=== PATIENT | female | born 1975 ===

== ENCOUNTER 2018-05-17 09:12 | Emergency (ER) | payer OTHER ==
[2018-05-17 09:18] VITALS: BMI 35.1
[2018-05-17 09:20] VITALS: O2SAT 98
--- NOTE | 2018-05-17 10:15 | ED PDOC ---
HPI: Female Pain Time Seen by Provider: 05/17/18 09:20 Chief Complaint (Nursing): Female Genitourinary Chief Complaint (Provider): Female Genitourinary History Per: Patient, Booking Agent ([id number]) History/Exam Limitations: no limitations Onset/Duration Of Symptoms: Days Associated Symptoms: denies: Fever, Vomiting, Diarrhea Additional Complaint(s): 42 y/o female presents to ER with for evaluation of right sided abdominal discomfort for several days. Patient reports feeling as a baby moving inside her. She states she had blood work done last month at [facility] that showed she was not . Patient still thinks she may be and reports not getting her period this month. She reports one isolated vaginal bleeding episode on May 09. Patient denies any vomiting, fever or diarrhea. She is requesting US since blood work showed before that there is no . PMD: [facility] Past Medical History Reviewed: Historical Data, Nursing Documentation, Vital Signs Vital Signs: Last Vital Signs Temp 98.3 F 05/17/18 09:18 Pulse 90 05/17/18 09:18 Resp 20 05/17/18 09:18 BP 145/99 H 05/17/18 09:18 Pulse Ox 98 05/17/18 09:18 - Medical History PMH: HTN, Hyperlipidemia, Kidney Stones, Chronic Kidney Disease - Surgical History Surgical History: Cholecystectomy Other surgeries: 3 Kidney stones removal surgeries - Family History Family History: States: Unknown Family Hx - Social History Current smoker - smoking cessation education provided: No Alcohol: None Drugs: Denies - Immunization History Hx Tetanus Toxoid Vaccination: No Hx Influenza Vaccination: No Hx Pneumococcal Vaccination: No - Home Medications Home Medications: Ambulatory Orders Medication Instructions Recorded DiphenhydrAMINE [Benadryl] 25 mg PO Q4 PRN 04/13/18 Ondansetron ODT [Zofran ODT] 4 mg PO Q8 #12 odt 04/13/18 - Allergies Allergies/Adverse Reactions: Allergies Allergy/AdvReac Type Severity Reaction Status Date / Time No Known Allergies Allergy Unverified 03/29/13 14:25 Review of Systems ROS Statement: Except As Marked, All Systems Reviewed And Found Negative Constitutional: Negative for: Fever Gastrointestinal: Positive for: Abdominal Pain (Right sided). Negative for: Vomiting, Diarrhea Physical Exam - Reviewed Nursing Documentation Reviewed: Yes Vital Signs Reviewed: Yes - Physical Exam Appears: Positive for: Non-toxic, No Acute Distress Head Exam: Positive for: ATRAUMATIC, NORMOCEPHALIC Skin: Positive for: Normal Color, Warm, Dry Eye Exam: Positive for: Normal appearance ENT: Positive for: Normal ENT Inspection Neck: Positive for: Normal, Painless ROM, Supple Cardiovascular/Chest: Positive for: Regular Rate, Rhythm. Negative for: Murmur Respiratory: Positive for: Normal Breath Sounds. Negative for: Wheezing Gastrointestinal/Abdominal: Positive for: Soft, Tenderness (Slight right sided) Extremity: Positive for: Normal ROM. Negative for: Pedal Edema, Swelling Neurologic/Psych: Positive for: Alert, Oriented (x3) - Laboratory Results Result Diagrams: 05/17/18 12:40 05/17/18 12:40 - ECG O2 Sat by Pulse Oximetry: 98 (RA) Pulse Ox Interpretation: Normal Medical Decision Making Medical Decision Making: Time: 951 Initial Impression: abdominal discomfort rule out pelvic abnormality. if US is negative, rule out kidney stones Initial Plan: --Beta- HCG --CMP --Lipase --CBC --Urine --Urinalysis --Transvaginal US 141 Transvaginal US FINDINGS: UTERUS: Measures 10.0 x 7.7 x 3.4 cm. Normal in size and anteverted appearance. No fibroid or other mass lesion seen. ENDOMETRIUM: Measures 3 mm in diameter. Unremarkable. CERVIX: Incidental nabothian cysts measuring 8 mm in size is noted. RIGHT OVARY: Measures 3.9 x 4.7 x 2.1 cm. No solid mass. Normal flow. Benign physiologic follicular cysts are noted. LEFT OVARY: Measures 4.9 x 4.4 x 3.4 cm. No solid mass. Normal flow. A dominant left ovarian cyst measuring 4.8 x 3.6 x 2.1 cm in size. This cyst appears benign simple in type. There are small smaller sub cm peripheral follicle cysts also incidentally noted. FREE FLUID: No significant free fluid noted. OTHER FINDINGS: None. IMPRESSION: Simple benign-appearing left ovarian cyst measuring 4.8 x 3.6 x 2.1 cm. Consider follow-up pelvic/transvaginal ultrasound imaging in 6 to 8 weeks to reassess. 1452 Patient is aware of US results. Will obtain CT of abdomen for patient has history of kidney stones. 1640 CT abd/pelvis FINDINGS: LOWER THORAX: The visualized lungs are clear. LIVER: Enlarged and measures 21 cm in craniocaudad dimension. No intrahepatic ductal dilatation. GALLBLADDER AND BILE DUCTS: Surgically absent. PANCREAS: Normal in size. No ductal dilatation. SPLEEN: Normal in size. ADRENALS: The right adrenal gland is normal in size. There is a 2.1 x 2.7 cm adenoma in the left adrenal gland. KIDNEYS AND URETERS: Both kidneys are normal in size without hydronephrosis. There are small nonobstructing stones in the lower pole of the right kidney, the largest measures 5 mm. VASCULATURE: No aortic aneurysm. No aortic atherosclerotic calcification or mural plaque present. BOWEL: The small bowel loops are normal in caliber. There is scattered colonic diverticulosis without CT evidence for acute diverticulitis.. No bowel dilat ation or wall thickening. No bowel obstruction. APPENDIX: Normal appendix. PERITONEUM: No free fluid. No free air. LYMPH NODES: No enlarged lymph nodes. BLADDER: Well distended and grossly normal in appearance. REPRODUCTIVE: The uterus is normal in size. There is a 4.5 x 3.3 cm simple cyst in the left ovary. BONES: No acute fracture. Within normal limits for the patient's age. A small subcentimeter area of sclerosis in the right lesser trochanter is statistically most compatible with a bone island. OTHER FINDINGS: None. IMPRESSION: 1. No acute abdominal or pelvic abnormality. Small nonobstructing stones in the lower pole of the right kidney, the largest measures 5 mm. 2. 2.7 cm benign adenoma in the left adrenal gland. 3. Scattered colonic diverticulosis without CT evidence for acute diverticulitis. 4. 4.5 cm simple cyst in the left ovary. Please correlate with pelvic ultrasound if there is a concern for ovarian torsion. 5. Mild hepatomegaly. 1723 CT shows patient has an ovarian cyst. Provider discussed US and CT with patient and instructed to follow up with outpatient clinic. Patient has been made aware of elevated LFTs. 1752 Patient at this time feels better. Scribe Attestation: Documented by Nori Sawaged, acting as a scribe for Haviva Marysol, MD. Provider Scribe Attestation: All medical record entries made by the Scribe were at my direction and personally dictated by me. I have reviewed the chart and agree that the record accurately reflects my personal performance of the history, physical exam, medical decision making, and the department course for this patient. I have also personally directed, reviewed, and agree with the discharge instructions and disposition. 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
[2018-05-17 10:52] LABS: SQUAMOUS EPITHIAL 3 /hpf (0-5); URINE BACTERIA RARE (<OCC)
[2018-05-17 11:02] LABS: URINE BILIRUBIN NEGATIVE (NEGATIVE); URINE BLOOD NEGATIVE (NEGATIVE); URINE CLARITY CLER (Clear); URINE COLOR LIGHT YELLOW (YELLOW); URINE GLUCOSE (UA) NEGATIVE (NEGATIVE); URINE LEUKOCYTE ESTERASE NEGATIVE Leu/uL (Negative); URINE PROTEIN NEGATIVE (NEGATIVE); URINE UROBILINOGEN 0.2 mg/dL (0.2-1.0)
[2018-05-17 12:59] LABS: BASO % 0.6 % (0.0-2.0); EOS # 0.2 K/uL (0.0-0.7); EOS % 2.1 % (0.0-4.0); HEMOGLOBIN 14.8 g/dL (12.0-16.0); LYMPH # 3.4 K/uL (1.0-4.3); LYMPH % 42.4 % (20.0-40.0); MEAN CELL VOLUME 90.3 fl (81.0-99.0); MEAN CORPUSCULAR HEMOGLOBIN 29.9 pg (27.0-31.0); MEAN CORPUSCULAR HGB CONC 33.1 g/dL (33.0-37.0); MEAN PLATELET VOLUME 8.5 fl (7.2-11.7); MONO # 0.4 K/uL (0.0-0.8); MONO % 4.6 % (0.0-10.0); NEUT % 50.3 % (50.0-75.0); NRBC % 0.1 % (0.0-0.0); RBC 4.94 Mil/uL (3.80-5.20); RED CELL DISTRIBUTION WIDTH 12.9 % (11.5-14.5)
[2018-05-17 13:28] LABS: ALB/GLOB RATIO 1.1 (1.0-2.1); ALBUMIN 4.5 g/dL (3.5-5.0); ALT/SGPT 66 U/L (9-52); AST/SGOT 50 U/L (14-36); BLOOD UREA NITROGEN 12 mg/dl (7-17); CALCIUM 9.7 mg/dL (8.4-10.2); GFR NON-AFRICAN AMERICAN > 60
[2018-05-17 13:55] LABS: LIPASE 49 U/L (23-300)
--- NOTE | 2018-05-17 14:19 | US ---
Date of service: 05/17/2018 HISTORY: pelvic pain COMPARISON: None available. TECHNIQUE: FINDINGS: UTERUS: Measures 10.0 x 7.7 x 3.4 cm. Normal in size and anteverted appearance. No fibroid or other mass lesion seen. ENDOMETRIUM: Measures 3 mm in diameter. Unremarkable. CERVIX: Incidental nabothian cysts measuring 8 mm in size is noted. RIGHT OVARY: Measures 3.9 x 4.7 x 2.1 cm. No solid mass. Normal flow. Benign physiologic follicular cysts are noted. LEFT OVARY: Measures 4.9 x 4.4 x 3.4 cm. No solid mass. Normal flow. A dominant left ovarian cyst measuring 4.8 x 3.6 x 2.1 cm in size. This cyst appears benign simple in type. There are small smaller sub cm peripheral follicle cysts also incidentally noted. FREE FLUID: No significant free fluid noted. OTHER FINDINGS: None. IMPRESSION: Simple benign-appearing left ovarian cyst measuring 4.8 x 3.6 x 2.1 cm. Consider follow-up pelvic/transvaginal ultrasound imaging in 6 to 8 weeks to reassess.
[2018-05-17 14:58] VITALS: BP 136/87; PULSE 70; RESP 14; TEMP 98.6
--- NOTE | 2018-05-17 16:44 | CT ---
Date of service: 05/17/2018 PROCEDURE: CT Abdomen and Pelvis without intravenous contrast HISTORY: Abdominal pain COMPARISON: None. TECHNIQUE: CT scan of the abdomen and pelvis was performed without administration of intravenous contrast. Oral contrast was not administered. Coronal and sagittal reformatted images were obtained. . Radiation dose: Total exam DLP = 716.49 mGy-cm. This CT exam was performed using one or more of the following dose reduction techniques: Automated exposure control, adjustment of the mA and/or kV according to patient size, and/or use of iterative reconstruction technique. FINDINGS: LOWER THORAX: The visualized lungs are clear. LIVER: Enlarged and measures 21 cm in craniocaudad dimension. No intrahepatic ductal dilatation. GALLBLADDER AND BILE DUCTS: Surgically absent. PANCREAS: Normal in size. No ductal dilatation. SPLEEN: Normal in size. ADRENALS: The right adrenal gland is normal in size. There is a 2.1 x 2.7 cm adenoma in the left adrenal gland. KIDNEYS AND URETERS: Both kidneys are normal in size without hydronephrosis. There are small nonobstructing stones in the lower pole of the right kidney, the largest measures 5 mm. VASCULATURE: No aortic aneurysm. No aortic atherosclerotic calcification or mural plaque present. BOWEL: The small bowel loops are normal in caliber. There is scattered colonic diverticulosis without CT evidence for acute diverticulitis.. No bowel dilatation or wall thickening. No bowel obstruction. APPENDIX: Normal appendix. PERITONEUM: No free fluid. No free air. LYMPH NODES: No enlarged lymph nodes. BLADDER: Well distended and grossly normal in appearance. REPRODUCTIVE: The uterus is normal in size. There is a 4.5 x 3.3 cm simple cyst in the left ovary. BONES: No acute fracture. Within normal limits for the patient's age. A small subcentimeter area of sclerosis in the right lesser trochanter is statistically most compatible with a bone island. OTHER FINDINGS: None. IMPRESSION: 1. No acute abdominal or pelvic abnormality. Small nonobstructing stones in the lower pole of the right kidney, the largest measures 5 mm. 2. 2.7 cm benign adenoma in the left adrenal gland. 3. Scattered colonic diverticulosis without CT evidence for acute diverticulitis. 4. 4.5 cm simple cyst in the left ovary. Please correlate with pelvic ultrasound if there is a concern for ovarian torsion. 5. Mild hepatomegaly.
== END 2018-05-17 17:30 | disposition home or self-care (01) ==
LOC: H.ER 09:12
DX: N83.202 Unspecified ovarian cyst, left side (principal); K57.30 Diverticulosis of large intestine without perforation or abscess without bleeding; R94.5 Abnormal results of liver function studies; E78.5 Hyperlipidemia, unspecified; I12.9 Hypertensive chronic kidney disease with stage 1 through stage 4 chronic kidney disease, or unspecified chronic kidney disease